=== PATIENT | male | born 1985 | race Caucasian/White ===

== ENCOUNTER 2016-12-21 22:58 | Emergency (ER) | payer OTHER ==
[2016-12-21 23:21] VITALS: BP 119/78; PULSE 72; TEMP 98.2; BMI 27.3
[2016-12-21] MEDS ORDERED: TETANUS AND DIPHTHERIA TOXOID 0.5 ML DISP.SYRIN IM ONE (23:25)
[2016-12-21] MEDS ORDERED: CEPHALEXIN MONOHYDRATE 500 MG CAPSULE (UD) PO ONE (23:25)
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
[2016-12-21] MEDS ORDERED: CEPHALEXIN MONOHYDRATE 250 MG CAPSULE (FP) ONE (23:32)
== END 2016-12-21 23:55 | disposition home or self-care (01) ==
LOC: JER 22:58
DX: T14.8XXA Other injury of unspecified body region, initial encounter (principal); W18.39XA Other fall on same level, initial encounter; Y35.91XA Legal intervention, means unspecified, law enforcement official injured, initial encounter; Y93.89 Activity, other specified; Y92.9 Unspecified place or not applicable
CPT/HCPCS: 99282-25

== ENCOUNTER 2023-04-13 12:01 | Emergency (ER) | payer BC, OTHER ==
[2023-04-13 12:09] VITALS: BP 126/91; PULSE 76; RESP 18; TEMP 98.8; BMI 28.0
[2023-04-13] MEDS ORDERED: METHOCARBAMOL 500 MG TABLET PO ONE (12:10)
[2023-04-13] MEDS ORDERED: KETOROLAC TROMETHAMINE 30 MG/1 ML VIAL IM ONE (12:10)
[2023-04-13] MEDS ORDERED: ACETAMINOPHEN 500 MG TABLET (FP) PO ONE (12:10)
[2023-04-13] MEDS ORDERED: ACETAMINOPHEN 500 MG TABLET (FP) ONE (12:19)
[2023-04-13] MEDS ORDERED: METHOCARBAMOL 500 MG TABLET ONE (12:20)
[2023-04-13] MEDS ORDERED: KETOROLAC TROMETHAMINE 30 MG/1 ML VIAL ONE (12:20)
[2023-04-13] MEDS ORDERED: diazePAM 5 MG TABLET PO ONE (12:55)
[2023-04-13] MEDS ORDERED: diazePAM 5 MG TABLET ONE (13:04)
[2023-04-13] MEDS ORDERED: LIDOCAINE 5% TOPICAL PATCH TP ONE (14:08)
[2023-04-13] MEDS ORDERED: oxyCODONE HCL 5 MG TABLET PO ONE (14:08)
[2023-04-13] MEDS ORDERED: oxyCODONE HCL 5 MG TABLET ONE (14:16)
[2023-04-13] MEDS ORDERED: LIDOCAINE 5% TOPICAL PATCH ONE (14:17)
[2023-04-13] MEDS ORDERED: LIDOCAINE PATCH REMOVAL MC ONE (22:00)
== END 2023-04-13 15:34 | disposition home or self-care (01) ==
LOC: FER 12:01
PROC: 3E0233Z Introduction of Anti-inflammatory into Muscle, Percutaneous Approach (ICD-10-PCS; principal; 2023-04-13)
DX: M54.50 Low back pain, unspecified (principal); M62.830 Muscle spasm of back
CPT/HCPCS: 72131-TC; 99284-25